=== PATIENT | female | born 1955 | race Caucasian/White ===

== ENCOUNTER 2024-06-18 12:08 | Emergency (ER) | payer MEDICARE, OTHER ==
[~2024-06-18] VITALS: Ht 162.6 cm; Wt 64.9 kg
[~2024-06-18 12:08] MED LIST: ASPI1TAB2 PO
[2024-06-18] MEDS ORDERED: AMOX/CLAVULANATE 875 MG TABLET ONE (13:53)
[2024-06-18] MEDS ORDERED: ACETAMINOPHEN ES 500 MG TABLET ONE (13:53)
[2024-06-18] MEDS ORDERED: KETOROLAC TROMETHAMINE 15 MG/ML VIAL ONE (13:53)
[2024-06-18] MEDS: AMOX/CLAVULANATE 875 MG TABLET PO ONE (13:58)
[2024-06-18] MEDS: ACETAMINOPHEN ES 500 MG TABLET PO ONE (13:59)
[2024-06-18] MEDS: KETOROLAC TROMETHAMINE 15 MG/ML VIAL IV ONE (13:59)
[2024-06-18] MEDS ORDERED: TDAP [DIPH/PERTUSSIS/TET] 0.5 ML VIAL IM ONE (14:03)
[2024-06-18] MEDS ORDERED: ACET-2605 PO (14:19)
[2024-06-18] MEDS ORDERED: AMOX-430 PO (14:19)
[2024-06-18] MEDS ORDERED: NAPR500T6 PO (14:19)
[2024-06-18 14:32] VITALS: BP 122/88; TEMP 98.6; O2SAT 98
[2024-06-18] MEDS: TDAP [DIPH/PERTUSSIS/TET] 0.5 ML VIAL IM ONE (14:32)
== END 2024-06-18 14:33 | disposition home or self-care (01) ==
LOC: ER 12:21
DX: S61.250A Open bite of right index finger without damage to nail, initial encounter (principal); S61.451A Open bite of right hand, initial encounter; S61.551A Open bite of right wrist, initial encounter; L03.113 Cellulitis of right upper limb; Z79.899 Other long term (current) drug therapy; W55.01XA Bitten by cat, initial encounter; Y93.89 Activity, other specified; Y92.89 Other specified places as the place of occurrence of the external cause; Y99.8 Other external cause status
CPT/HCPCS: 99284; 96372; 90471; 90715; J1885